=== PATIENT | male | born 1980 | race Caucasian/White ===

== ENCOUNTER → 2017-09-09 | Outpatient (CLI) | payer OTHER ==
[~2017-09-09] MED LIST: DOCU-416 PO; IBUP600T22 PO; LOR5 PO; LOR5/325 PO; NO ROUTINE MEDS; OND4 PO; ONDA4TAB PO; PER PO; TAM4 PO; TAMS0.4C25 PO
--- NOTE | 2017-09-09 09:00 | RADIOLOGY IMAGING REPORT ---
FACILITY: [facility] - [place] PATIENT NAME: Sven Gurerero : 1980 MR: [id number] V: [id number] EXAM DATE: ORDERING PHYSICIAN: JIMENA SALES TECHNOLOGIST: [place] [facility] [place]: Sven Guerrero : 1980 Visit/Account:[id number] Date of Sevice: 09/09/2017 CT abdomen and pelvis without IV contrast - Renal Stone Protocol History: History of ESWL cystoscopy COMPARISON STUDIES: CT abdomen and pelvis 04/24/2017. TECHNIQUE: Axial CT images were obtained through the kidneys, ureters, and bladder without IV contr ast. Reformatted coronal and sagittal images were also obtained. One of the following dose optimization techniques was utilized in the performance of this exam: Autom ated exposure control; adjustment of the mA and/or kV according to the patient's size; or use of an i terative reconstruction technique. Specific details can be referenced in the facility's radiology C T exam operational policy. FINDINGS: CT Abdomen and Pelvis- Chest bases: Negative Liver: Normal. Spleen: size is normal. Gallbladder and bile ducts: Gallbladder is present. Bile ducts are normal caliber. Pancreas: negative Adrenal glands: negative Right kidney and ureter: New lower pole 2 mm stone is nonobstructing. Left kidney and ureter: New upper pole 2 mm stone is nonobstructing. An upper pole cortical cyst me asures 15 mm, unchanged. Pelvic structures: negative Bowel and mesenteries: negative Ascites: None Vessels: negative Musculoskeletal: Negative Body wall: negative Abd/Pelvis lymph node assessment: negative IMPRESSION: New, single bilateral small nonobstructing renal stones. Report Dictated By: Coreen Ray MD at 09/09/2017 8:25 AM Report E-Signed By: Coreen Ray MD at 09/09/2017 8:55 AM WSN:[email or web address]
== END ==
LOC: CT 02:14
PROVIDERS: ATTEND Urology
DX: N20.0 Calculus of kidney (principal)
CPT/HCPCS: 74176

== ENCOUNTER → 2017-10-21 | Outpatient (CLI) | payer OTHER | LOC: LAB 09:49 | PROVIDERS: ATTEND Urology | DX: N20.0 Calculus of kidney (principal) | CPT/HCPCS: 36415; 82040; 82247; 82310; 82374; 82435; 82565; 82947; 84075; 84132; 84155; 84295; 84450; 84460; 84520 ==

== ENCOUNTER → 2018-10-27 | Outpatient (CLI) | payer OTHER ==
--- NOTE | 2018-10-27 10:21 | RADIOLOGY IMAGING REPORT ---
FACILITY: [facility] PATIENT NAME: Sven Guerrero : 1980 MR: [id number] V: [id number] EXAM DATE: ORDERING PHYSICIAN: JIMENA SALES TECHNOLOGIST: [place] [facility] [place] Patient: Sven Guerrero : 1980 Visit/Account:[id number] Date of Sevice: 10/27/2018 CT ABDOMEN PELVIS W/O CON COMPARISONS: CT abdomen pelvis without contrast dated September 09, 2017. ADDITIONAL PERTINENT HISTORY: History of stones. TECHNIQUE: Multiple axial images are obtained from the lung bases through the lesser trochanters with out IV contrast. One of the following dose optimization techniques was utilized in the performance o f this exam: Automated exposure control; adjustment of the mA and/or kV according to the patient's si ze; or use of an iterative reconstruction technique. Specific details can be referenced in the [facility]'s radiology CT exam operational policy. FINDINGS: Lung bases: Negative. Free air and free fluid: None. Liver: Negative for a noncontrasted examination.. Spleen: Negative for a noncontrasted examination. Adrenal glands: Negative. Kidneys, ureters and urinary bladder: Continued findings of a small nonobstructing renal calculus inv olving the upper pole of the left kidney small low-attenuation lesion involving the upper pole of the left kidney consistent with a simple cyst. Previously described small calcification involving the l ower pole of the right kidney is no longer present. No hydroureteronephrosis. No ureteral calculi o r bladder calculi.. Pancreas: Grossly negative. Gallbladder: Contracted gallbladder. Otherwise negative. Bowel and mesentery: Negative. Lymph node assessment: Negative. Abdominal pelvic vasculature: Negative. Intrapelvic contents: Negative.. Surrounding soft tissues: Negative. Osseous structures: Negative. IMPRESSION: 1. Findings of a nonobstructing renal calculus involving the upper pole of the left kidney. 2. Interval resolution of a small renal calculus involving the lower pole of the right kidney. 3. No obstructing calculi noted on today's exam. 4. No other new findings from previous exam. Report Dictated By: Yordan Caraballo MD at 10/27/2018 10:09 AM Report E-Signed By: Yordan Caraballo MD at 10/27/2018 10:16 AM WSN:[email or web address]
== END ==
LOC: CT 02:39
PROVIDERS: ATTEND Urology
DX: N20.0 Calculus of kidney (principal)
CPT/HCPCS: 74176